=== PATIENT | male | born 1945 | race Caucasian/White ===

== ENCOUNTER 2021-07-31 12:48 | Inpatient (IN) | payer OTHER, MEDICARE ==
[2021-07-31] MEDS ORDERED: ALBUTEROL HFA INHALER INHALATION STA (12:53)
[2021-07-31] MEDS ORDERED: IBUPROFEN 600 MG TAB PO STA (12:55)
[2021-07-31] MEDS ORDERED: ACETAMINOPHEN TAB 500 MG TAB PO STA (12:55)
--- NOTE | 2021-07-31 13:13 | ED ---
General Adult HPI - General Chief complaint: Shortness of Breath Stated complaint: MARYAM Time Seen by Provider: 07/31/21 12:55 Source: patient, EMS, RN notes reviewed, old records reviewed Mode of arrival: EMS Limitations: no limitations - History of Present Illness Initial comments: This is a 76-year-old male who presents emergency Department with difficulty breathing. Patient states he has a past medical history significant for COPD and atrial fibrillation. Patient states last few days she's had a cough no sputum production. Patient also states last few days she's felt as though he had a fever but not taken his temperature. Patient states that his difficulty breathing is getting worse. Patient denies any chest pain or palpitations. Patient denies lightheadedness or dizziness. Patient just drove back from a fall. Patient denies any swelling to his legs or calf tenderness. Patient denies abdominal pain patient denies nausea vomiting diarrhea. - Related Data Allergies Allergy/AdvReac Type Severity Reaction Status Date / Time Sulfa (Sulfonamide Allergy Rash/Hives Verified 07/31/21 13:06 Antibiotics) Review of Systems ROS Statement: Those systems with pertinent positive or pertinent negative responses have been documented in the HPI. ROS Other: All systems not noted in ROS Statement are negative. Past Medical History Past Medical History: Atrial Fibrillation, COPD History of Any Multi-Drug Resistant Organisms: None Reported Past Surgical History: Hernia Repair, Joint Replacement, Orthopedic Surgery Additional Past Surgical History / Comment(s): Neck fusion, rib removal, knee replacement, right shoulder replacement, bilat hip replacement, toe surgery Past Psychological History: Anxiety, Depression Smoking Status: Former smoker Past Alcohol Use History: Occasional Past Drug Use History: Marijuana General Exam - General Exam Comments Initial Comments: GENERAL: Patient is well-developed and well-nourished. Patient is nontoxic and well- hydrated and is in mild distress. ENT: Neck is soft and supple. No significant lymphadenopathy is noted. Oropharynx is clear. Moist mucous membranes. Neck has full range of motion without eliciting any pain. EYES: The sclera were anicteric and conjunctiva were pink and moist. Extraocular movements were intact and pupils were equal round and reactive to light. Eyelids were unremarkable. PULMONARY: Patient is tachypneic. No crackles or rales were noted CARDIOVASCULAR: Patient is tachycardic at 120 beats a minute ABDOMEN: Soft and nontender with normal bowel sounds. SKIN: Skin is clear with no lesions or rashes and otherwise unremarkable. NEUROLOGIC: Patient is alert and oriented x3. Cranial nerves II through XII are grossly intact. Motor and sensory are also intact. Normal speech, volume and content. Symmetrical smile. MUSCULOSKELETAL: Normal extremities with adequate strength and full range of motion. LYMPHATICS: No significant lymphadenopathy is noted PSYCHIATRIC: Normal psychiatric evaluation. Limitations: no limitations Course Vital Signs 07/31/21 12:50 Temperature 100.7 F H Pulse Rate 108 H Respiratory 22 Rate Blood Pressure 129/86 O2 Sat by Pulse 91 L Oximetry Medical Decision Making - Medical Decision Making EKG shows atrial fibrillation with occasional PVC at 444 bpm NH interval 137 QRS 190 QT interval is 289 QTC is 372. Patient's EKG shows no ST segment elevation or depression. X-ray shows acute pulmonary edema. BMP correlates with pulmonary edema I started the patient on Lasix. I spoke with the [facility] see agreed with the patient admitted the patient wrote admitting orders. Because the patient also low-grade fever started patient on antibiotics. - Lab Data Result diagrams: 07/31/21 13:04 07/31/21 13:04 Lab Results 07/31/21 07/31/21 07/31/21 Range/Units 13:04 13:04 13:04 WBC 9.6 (3.8-10.6) k/uL RBC 4.16 L (4.30-5.90) m/uL Hgb 12.6 L (13.0-17.5) gm/dL Hct 39.6 (39.0-53.0) % MCV 95.2 (80.0-100.0) fL MCH 30.4 (25.0-35.0) pg MCHC 31.9 (31.0-37.0) g/dL RDW 16.3 H (11.5-15.5) % Plt Count 280 (150-450) k/uL MPV 7.4 Neutrophils % 82 % Lymphocytes % 6 % Monocytes % 9 % Eosinophils % 0 % Basophils % 0 % Neutrophils # 7.9 H (1.3-7.7) k/uL Lymphocytes # 0.6 L (1.0-4.8) k/uL Monocytes # 0.8 (0-1.0) k/uL Eosinophils # 0.0 (0-0.7) k/uL Basophils # 0.0 (0-0.2) k/uL Anisocytosis Slight PT 11.4 (9.0-12.0) sec INR 1.1 (<1.2) APTT 29.4 (22.0-30.0) sec D-Dimer 0.32 (<0.60) mg/L FEU Sodium 135 L (137-145) mmol/L Potassium 5.0 (3.5-5.1) mmol/L Chloride 105 (98-107) mmol/L Carbon Dioxide 21 L (22-30) mmol/L Anion Gap 9 mmol/L BUN 15 (9-20) mg/dL Creatinine 1.01 (0.66-1.25) mg/dL Est GFR (CKD-EPI)AfAm 84 (>60 ml/min/1.73 sqM) Est GFR (CKD-EPI)NonAf 73 (>60 ml/min/1.73 sqM) Glucose 119 H (74-99) mg/dL Plasma Lactic Acid Jose Manuel (0.7-2.0) mmol/L Calcium 9.0 (8.4-10.2) mg/dL Magnesium 2.0 (1.6-2.3) mg/dL Total Bilirubin 1.0 (0.2-1.3) mg/dL AST 30 (17-59) U/L ALT 16 (4-49) U/L Alkaline Phosphatase 81 (38-126) U/L Troponin I (0.000-0.034) ng/mL NT-Pro-B Natriuret Pep pg/mL Total Protein 6.4 (6.3-8.2) g/dL Albumin 3.7 (3.5-5.0) g/dL Coronavirus (PCR) (Not Detectd) Influenza Type A RNA (Not Detectd) Influenza Type B (PCR) (Not Detectd) 07/31/21 07/31/21 07/31/21 Range/Units 13:04 13:04 13:04 WBC (3.8-10.6) k/uL RBC (4.30-5.90) m/uL Hgb (13.0-17.5) gm/dL Hct (39.0-53.0) % MCV (80.0-100.0) fL MCH (25.0-35.0) pg MCHC (31.0-37.0) g/dL RDW (11.5-15.5) % Plt Count (150-450) k/uL MPV Neutrophils % % Lymphocytes % % Monocytes % % Eosinophils % % Basophils % % Neutrophils # (1.3-7.7) k/uL Lymphocytes # (1.0-4.8) k/uL Monocytes # (0-1.0) k/uL Eosinophils # (0-0.7) k/uL Basophils # (0-0.2) k/uL Anisocytosis PT (9.0-12.0) sec INR (<1.2) APTT (22.0-30.0) sec D-Dimer (<0.60) mg/L FEU Sodium (137-145) mmol/L Potassium (3.5-5.1) mmol/L Chloride (98-107) mmol/L Carbon Dioxide (22-30) mmol/L Anion Gap mmol/L BUN (9-20) mg/dL Creatinine (0.66-1.25) mg/dL Est GFR (CKD-EPI)AfAm (>60 ml/min/1.73 sqM) Est GFR (CKD-EPI)NonAf (>60 ml/min/1.73 sqM) Glucose (74-99) mg/dL Plasma Lactic Acid Jose Manuel 1.7 (0.7-2.0) mmol/L Calcium (8.4-10.2) mg/dL Magnesium (1.6-2.3) mg/dL Total Bilirubin (0.2-1.3) mg/dL AST (17-59) U/L ALT (4-49) U/L Alkaline Phosphatase (38-126) U/L Troponin I 0.015 (0.000-0.034) ng/mL NT-Pro-B Natriuret Pep 3840 pg/mL Total Protein (6.3-8.2) g/dL Albumin (3.5-5.0) g/dL Coronavirus (PCR) (Not Detectd) Influenza Type A RNA (Not Detectd) Influenza Type B (PCR) (Not Detectd) 07/31/21 07/31/21 Range/Units 13:08 13:09 WBC (3.8-10.6) k/uL RBC (4.30-5.90) m/uL Hgb (13.0-17.5) gm/dL Hct (39.0-53.0) % MCV (80.0-100.0) fL MCH (25.0-35.0) pg MCHC (31.0-37.0) g/dL RDW (11.5-15.5) % Plt Count (150-450) k/uL MPV Neutrophils % % Lymphocytes % % Monocytes % % Eosinophils % % Basophils % % Neutrophils # (1.3-7.7) k/uL Lymphocytes # (1.0-4.8) k/uL Monocytes # (0-1.0) k/uL Eosinophils # (0-0.7) k/uL Basophils # (0-0.2) k/uL Anisocytosis PT (9.0-12.0) sec INR (<1.2) APTT (22.0-30.0) sec D-Dimer (<0.60) mg/L FEU Sodium (137-145) mmol/L Potassium (3.5-5.1) mmol/L Chloride (98-107) mmol/L Carbon Dioxide (22-30) mmol/L Anion Gap mmol/L BUN (9-20) mg/dL Creatinine (0.66-1.25) mg/dL Est GFR (CKD-EPI)AfAm (>60 ml/min/1.73 sqM) Est GFR (CKD-EPI)NonAf (>60 ml/min/1.73 sqM) Glucose (74-99) mg/dL Plasma Lactic Acid Jose Manuel (0.7-2.0) mmol/L Calcium (8.4-10.2) mg/dL Magnesium (1.6-2.3) mg/dL Total Bilirubin (0.2-1.3) mg/dL AST (17-59) U/L ALT (4-49) U/L Alkaline Phosphatase (38-126) U/L Troponin I (0.000-0.034) ng/mL NT-Pro-B Natriuret Pep pg/mL Total Protein (6.3-8.2) g/dL Albumin (3.5-5.0) g/dL Coronavirus (PCR) Not Detected (Not Detectd) Influenza Type A RNA Not Detected (Not Detectd) Influenza Type B (PCR) Not Detected (Not Detectd) Disposition Clinical Impression: Acute pulmonary edema, Pneumonia Disposition: ADMITTED IP TO THIS HOSP Referrals: None,Stated [REFERRING] - 1-2 days
[2021-07-31 13:23] LABS: Anisocytosis Slight; Basophils % (A) 0 %; Eosinophils % (A) 0 %; HCT 39.6 % (39.0-53.0); HGB 12.6 gm/dL (13.0-17.5); Lymphocytes # (A) 0.6 k/uL (1.0-4.8); Lymphocytes % (A) 6 %; MCH 30.4 pg (25.0-35.0); MCHC 31.9 g/dL (31.0-37.0); MCV 95.2 fL (80.0-100.0); Mean Platelet Volume 7.4; Monocytes # (A) 0.8 k/uL (0-1.0); Monocytes % (A) 9 %; Neutrophils # (A) 7.9 k/uL (1.3-7.7); Neutrophils % (A) 82 %; Platelet Count 280 k/uL (150-450); RBC 4.16 m/uL (4.30-5.90); RDW 16.3 % (11.5-15.5); WBC 9.6 k/uL (3.8-10.6)
[2021-07-31 13:34] LABS: Albumin 3.7 g/dL (3.5-5.0); Total Protein 6.4 g/dL (6.3-8.2)
[2021-07-31 13:36] LABS: INR 1.1 (<1.2); Partial Thromboplastin Time 29.4 sec (22.0-30.0); Prothrombin Time 11.4 sec (9.0-12.0)
--- NOTE | 2021-07-31 13:46 | XR ---
EXAMINATION TYPE: XR chest 2V DATE OF EXAM: 07/31/2021 1:32 PM COMPARISON: None TECHNIQUE: XR chest 2V Frontal and lateral views of the chest. CLINICAL INDICATION:Male, 76 years old with history of difficulty breathing; FINDINGS: Lungs/Pleura: There is no evidence of pleural effusion, focal consolidation, or pneumothorax. Increa sed haziness within the bilateral lateral lungs likely secondary to summation of overlying tissue. Pulmonary vascularity: Pulmonary vascular congestion. Heart/mediastinum: Cardiomediastinal silhouette is enlarged and stable. Musculoskeletal: No acute osseous pathology. Right arthroplasty partially visualized. IMPRESSION: Cardiomegaly and mild pulmonary vascular congestion. Correlate with BNP for congestive heart failure.
[2021-07-31] MEDS ORDERED: AZITHROMYCIN 500 MG in SODIUM CHLORIDE 0.9% 250 ML IVPB STA (14:23)
[2021-07-31] MEDS ORDERED: cefTRIAXone IN SWFI 1,000 MG/10 ML SYRINGE IVP STA (14:47)
[2021-07-31] MEDS: FUROSEMIDE 10 MG/ML 4 ML VIAL IV SCH ×2 (15:00→20:27)
[2021-07-31] MEDS ORDERED: IPRATROPIUM-ALBUTEROL 3 ML NEB INHALATION PRN (16:49)
[2021-07-31] MEDS: NITROGLYCERIN OINT 1 INCH/GM PACKET TOPICAL SCH ×2 (17:29→20:27)
[2021-07-31] MEDS: RIVAROXABAN 20 MG TAB PO SCH (17:29)
--- NOTE | 2021-07-31 17:48 | HP ---
HISTORY AND PHYSICAL CHIEF COMPLAINT: Shortness of breath. HISTORY OF PRESENT ILLNESS: This 76-year-old gentleman with a past medical history of atrial fibrillation and COPD who is living in the [place] area was apparently returning from [place] with his dog and the patient had features of COPD for the past several days, which worsened. No sputum production. The patient came to [facility] and was admitted for further evaluation and treatment. There is no history of any fever, rigors or chills at this time. The chest x-ray showed evidence of pulmonary edema. BNP was elevated at 3840. Influenza and COVID are negative. PAST MEDICAL HISTORY: History of COPD, atrial fibrillation. HOME MEDICATIONS: Home medications include . Doses are reviewed. ALLERGIES: SULFA. FAMILY HISTORY: No history of heart disease or strokes in the family. SOCIAL HISTORY: Previous history of smoking. REVIEW OF SYSTEMS: Fourteen-point review of systems negative except as mentioned earlier. Patient has significant hearing difficulties. He uses hearing aids. PHYSICAL EXAMINATION: Pulse is 126, blood pressure 120/60, respiration 18. HEENT: Conjunctivae normal. Oral mucosa moist. NECK: No jugular venous distention. No carotid bruit. CARDIOVASCULAR: S1, S2 muffled. RESPIRATION: Bilateral scattered rhonchi and crackles. ABDOMEN: Soft, obese. LEGS: No edema. No swelling. NERVOUS SYSTEM: No focal deficit. LABS: WBC 9.6, hemoglobin 12.6. Rest of the labs are noted. ASSESSMENT: 1. Shortness of breath, possibly chronic obstructive pulmonary disease acute exacerbation, as well as congestive heart failure, acute exacerbation. Ejection fraction unknown. 2. History of atrial fibrillation. 3. Chronic obstructive pulmonary disease. 4. Degenerative joint disease. 5. History of anxiety, depression. 6. History of nicotine dependence. RECOMMENDATIONS AND DISCUSSION: In this 76-year-old gentleman who presented with multiple complex medical issues, we will monitor the patient closely. Recommend intravenous diuretics and bronchodilators. Two-D echo with Doppler. Cardiology and pulmonology consultations. Prognosis guarded because of multiple complex medical issues. Further recommendations to follow. The initial troponin was 0.015. Will complete a set also. See orders for further details. MMODL / IJN: [id number] / MTDD
[2021-07-31] MEDS: IPRATROPIUM-ALBUTEROL 3 ML NEB INHALATION SCH (19:52)
[2021-07-31] MEDS ORDERED: SYMBICORT 80-4.5 MCG INHALER INHALATION SCH (20:00)
[2021-07-31] MEDS: PRAZOSIN 1 MG CAP PO SCH (20:27)
[2021-08-01] MEDS: FUROSEMIDE 10 MG/ML 4 ML VIAL IV SCH ×3 (05:33→19:53)
[2021-08-01 05:36] LABS: Basophils % (A) 0 %; Eosinophils # (A) 0.1 k/uL (0-0.7); Eosinophils % (A) 1 %; HCT 37.1 % (39.0-53.0); HGB 11.4 gm/dL (13.0-17.5); Lymphocytes # (A) 0.9 k/uL (1.0-4.8); Lymphocytes % (A) 13 %; MCH 29.8 pg (25.0-35.0); MCHC 30.7 g/dL (31.0-37.0); MCV 97.1 fL (80.0-100.0); Mean Platelet Volume 7.1; Monocytes # (A) 0.7 k/uL (0-1.0); Monocytes % (A) 9 %; Neutrophils # (A) 5.3 k/uL (1.3-7.7); Neutrophils % (A) 74 %; Platelet Count 271 k/uL (150-450); RBC 3.82 m/uL (4.30-5.90); RDW 15.8 % (11.5-15.5); WBC 7.1 k/uL (3.8-10.6)
[2021-08-01 05:48] LABS: Calcium 8.4 mg/dL (8.4-10.2); Potassium 3.9 mmol/L (3.5-5.1)
[2021-08-01] MEDS: IPRATROPIUM-ALBUTEROL 3 ML NEB INHALATION SCH ×4 (08:07→19:30)
[2021-08-01] MEDS: lamoTRIgine 100 MG TAB PO SCH (08:44)
[2021-08-01] MEDS: lamoTRIgine 25 MG TAB PO SCH (08:44)
[2021-08-01] MEDS: ATORVASTATIN 20 MG TAB PO SCH (08:44)
[2021-08-01] MEDS: NITROGLYCERIN OINT 1 INCH/GM PACKET TOPICAL SCH ×4 (08:44→20:01)
[2021-08-01] MEDS: buPROPion XL 300 MG TAB.ER.24H PO SCH (08:48)
[2021-08-01] MEDS: AZITHROMYCIN 500 MG in SODIUM CHLORIDE 0.9% 250 ML IVPB SCH (12:15)
[2021-08-01] MEDS: METOPROLOL TARTRATE 12.5 MG TAB PO SCH ×2 (12:19→19:53)
--- NOTE | 2021-08-01 13:08 | P.CRDCN ---
History of Present Illness Consult date: 08/01/21 History of present illness: History of present illness: This is a 76-year-old male who lives in the [place] area. He follows with a language pathologist in [place] for atrial fibrillation recently started on Xarelto a couple months ago. He was traveling to [place] through [employer] to see his sister and on his way back through customs, patient was significantly short of breath after he had walked to the duty free store. He came into [facility] emergency center for evaluation. He has had shortness of breath for a couple months and worse at this time. He also states he has some trouble with memory issues. He denies chest pain and states he is able to lie flat in bed. No edema. Patient gives history of having depression and suicidal ideation follows with a therapist 2 times per week and has a Tibetan mastiff service dog at his bedside. He also gives history of past asbestos an agent orange exposure. Patient was a smoker of 2 packs per day for 40+ years and quit in 1999. Patient was found to have a temperature 100.7. Heart rate 108, blood pressure 129/86, pulse ox 91% on room air. EKG A. fib at rate of 144 bpm. WBC 9.6, hemoglobin 12.6, platelet count 280. INR 1.1. D-dimer 0.32. Sodium 135, CO2 21, BUN 15 and creatinine 1.01. Blood sugar 119. Troponin negative on 3 draws. Liver function tests were all normal. Magnesium 2.0. Rotavirus PCR not detected. Influenza A not detected. Influenza B not detected. Chest x-ray reveals cardiomegaly and mild pulmonary vascular congestion. Correlate for BNP and congestive heart failure. Review Of Systems: Constitutional: No fever, no chills. No weakness, fatigue or lethargy. EENT: No headache. No dizziness. Lungs: Reports shortness of breath, cough, no sputum production. No wheezing. Shortness of breath with exertion. Cardiovascular: No chest pain, no lower extremity edema. No palpitations. No paroxysmal nocturnal dyspnea. No orthopnea. No lightheadedness or dizziness. No syncopal episodes. Abdominal: No abdominal pain. No nausea, vomiting. No diarrhea. No constipation. No bloody or tarry stools.. No loss of appetite. Genitourinary: No dysuria.. No urinary retention. Musculoskeletal: No myalgias. No muscle weakness, no gait dysfunction, no frequent falls. No back pain. No neck pain. Integumentary: No wounds, no lesions. No rash or pruritus. No unusual bruising. Neurologic: No aphasia. No facial droop. No change in mentation. No head injury. No headache. No paralysis. No paresthesia. Psychiatric: No depression. No anxiety. Endocrine: No abnormal blood sugars. Physical examination: Gen: This is a an obese 76-year-old male. HEENT: Head is atraumatic, normocephalic. Pupils equal, round. Sclerae is an icteric. NECK: Supple. No JVD. No lymphadenopathy. No thyromegaly. LUNGS: Diminished bilaterally. No wheezes or rhonchi. No intercostal retractions. HEART: Irregular rate and rhythm. No murmur. ABDOMEN: Soft. Bowel sounds are present. No masses. No tenderness. EXTREMITIES: 1+ bilaterally pedal edema. No calf tenderness. NEUROLOGICAL: Patient is awake, alert and oriented x3. Cranial nerves 2 through 12 are grossly intact. Assessment: Acute pulmonary edema, acute diastolic heart failure A. fib with RVR Chronic atrial fibrillation on anticoagulation Possible pneumonia COPD Hypertension Hyperlipidemia Plan: Continue Lasix 40 mg IV every 8 hours, I&O and daily weights, monitor electro lytes and renal function Continue antibiotics per primary team Patient will be started on low-dose Lopressor 12.5 g twice daily Consider adding Aldactone tomorrow if blood pressure is improved, currently soft Continue Xarelto 20 mg daily Obtain 2-D echocardiogram and Doppler study to assess cardiac structure and function Further recommendations to follow based upon clinical course Thank you kindly for this consultation. Nurse practitioner note has been reviewed, I agree with documented findings and plan of care. Patient was seen and examined. Past Medical History Past Medical History: Atrial Fibrillation, COPD History of Any Multi-Drug Resistant Organisms: None Reported Past Surgical History: Hernia Repair, Joint Replacement, Orthopedic Surgery Additional Past Surgical History / Comment(s): Neck fusion, rib removal, knee replacement, right shoulder replacement, bilat hip replacement, toe surgery Past Psychological History: Anxiety, Depression Smoking Status: Former smoker Past Alcohol Use History: Occasional Past Drug Use History: Marijuana Medications and Allergies Home Medications Medication Instructions Recorded Confirmed Type Albuterol Sulfate [Ventolin HFA] 2 puff INHALATION RT-Q4H PRN 07/31/21 07/31/21 History Fluticasone Propion/Salmeterol 1 puff INHALATION RT-BID 07/31/21 07/31/21 History [Wixela 250-50 Inhub] Prazosin HCl 2 mg PO HS 07/31/21 07/31/21 History Rivaroxaban [Xarelto] 20 mg PO DAILY@1800 07/31/21 07/31/21 History Simvastatin [Zocor] 40 mg PO DAILY 07/31/21 07/31/21 History buPROPion XL [Wellbutrin XL] 300 mg PO DAILY 07/31/21 07/31/21 History lamoTRIgine 200 mg PO DAILY 07/31/21 07/31/21 History lamoTRIgine [LaMICtal] 50 mg PO DAILY 07/31/21 07/31/21 History Allergies Allergy/AdvReac Type Severity Reaction Status Date / Time Sulfa (Sulfonamide Allergy Rash/Hives Verified 07/31/21 14:45 Antibiotics) Physical Exam Vitals: Vital Signs Temp Pulse Pulse Resp BP BP Pulse Ox 08/01/21 08:26 89 08/01/21 08:13 94 94 L 08/01/21 08:00 116 H 20 119/53 92 L 08/01/21 04:00 98 20 95/58 92 L 08/01/21 00:00 61 20 118/78 91 L 07/31/21 20:00 98.6 F 82 20 112/69 91 L 07/31/21 19:52 93 L 07/31/21 15:53 83 16 105/69 94 L 07/31/21 15:01 126 H 18 124/62 94 L 07/31/21 12:50 100.7 F H 108 H 22 129/86 91 L Intake and Output 07/31/21 08/01/21 08/01/21 22:59 06:59 14:59 Intake Total 485 485 Balance 485 485 Intake: Oral 485 485 Other: Voiding Method Toilet Toilet Urinal Urinal # Voids 1 3 Weight 125.191 kg Results 08/01/21 04:42 08/01/21 04:42 Cardiac Enzymes 07/31/21 07/31/21 07/31/21 Range/Units 13:04 13:04 16:02 AST 30 (17-59) U/L Troponin I 0.015 0.017 (0.000-0.034) ng/mL 07/31/21 Range/Units 20:51 AST (17-59) U/L Troponin I 0.016 (0.000-0.034) ng/mL Coagulation 07/31/21 Range/Units 13:04 PT 11.4 (9.0-12.0) sec APTT 29.4 (22.0-30.0) sec CBC 07/31/21 08/01/21 Range/Units 13:04 04:42 WBC 9.6 7.1 (3.8-10.6) k/uL RBC 4.16 L 3.82 L (4.30-5.90) m/uL Hgb 12.6 L 11.4 L (13.0-17.5) gm/dL Hct 39.6 37.1 L (39.0-53.0) % Plt Count 280 271 (150-450) k/uL Comprehensive Metabolic Panel 07/31/21 08/01/21 Range/Units 13:04 04:42 Sodium 135 L 135 L (137-145) mmol/L Potassium 5.0 3.9 (3.5-5.1) mmol/L Chloride 105 102 (98-107) mmol/L Carbon Dioxide 21 L 27 (22-30) mmol/L BUN 15 18 (9-20) mg/dL Creatinine 1.01 1.28 H (0.66-1.25) mg/dL Glucose 119 H 97 (74-99) mg/dL Calcium 9.0 8.4 (8.4-10.2) mg/dL AST 30 (17-59) U/L ALT 16 (4-49) U/L Alkaline Phosphatase 81 (38-126) U/L Total Protein 6.4 (6.3-8.2) g/dL Albumin 3.7 (3.5-5.0) g/dL Current Medications Generic Name Dose Route Start Last Admin Trade Name Freq PRN Reason Stop Dose Admin Albuterol/Ipratropium 3 ml 07/31/21 20:00 08/01/21 08:07 Ipratropium-Albuterol 3 Ml Neb INHALATION 3 ml RT-QID DOMINICK Administration Albuterol/Ipratropium 3 ml 07/31/21 16:49 Ipratropium-Albuterol 3 Ml Neb INHALATION RT-QID PRN Shortness Of Breath Or Wheezing Atorvastatin Calcium 20 mg 08/01/21 09:00 08/01/21 08:44 Atorvastatin 20 Mg Tab PO 20 mg DAILY DOMINICK Administration Budesonide/Formoterol Fumarate 2 puff 07/31/21 20:00 Symbicort 80-4.5 Mcg Inhaler INHALATION RT-BID DOMINICK Bupropion HCl 300 mg 08/01/21 09:00 08/01/21 08:48 Bupropion Xl 300 Mg Tab.Er.24h PO 300 mg DAILY DOMINICK Administration Furosemide 40 mg 07/31/21 14:30 08/01/21 05:33 Furosemide 10 Mg/Ml 4 Ml Vial IV 40 mg Q8H DOMINICK Administration Ceftriaxone Sodium 1 gm/ 50 mls @ 100 mls/hr 08/01/21 09:00 08/01/21 08:45 Sodium Chloride IVPB 100 mls/hr Q24HR DOMINICK Administration Protocol Azithromycin 500 mg/ Sodium 250 mls @ 250 mls/hr 08/01/21 09:00 Chloride IVPB 08/03/21 09:59 DAILY DOMINICK Protocol Lamotrigine 200 mg 08/01/21 09:00 08/01/21 08:44 Lamotrigine 100 Mg Tab PO 200 mg DAILY DOMINICK Administration Lamotrigine 50 mg 08/01/21 09:00 08/01/21 08:44 Lamotrigine 25 Mg Tab PO 50 mg DAILY DOMINICK Administration Nitroglycerin 1 inch 07/31/21 18:00 08/01/21 08:44 Nitroglycerin Oint 1 Inch/Gm Packet TOPICAL 1 inch QID DOMINICK Administration Prazosin HCl 2 mg 07/31/21 21:00 07/31/21 20:27 Prazosin 1 Mg Cap PO 2 mg HS DOMINICK Administration Rivaroxaban 20 mg 07/31/21 18:00 07/31/21 17:29 Rivaroxaban 20 Mg Tab PO 20 mg DAILY@1800 DOMINICK Administration Protocol Intake and Output 07/31/21 08/01/21 08/01/21 22:59 06:59 14:59 Intake Total 485 485 Balance 485 485 Intake: Oral 485 485 Other: Voiding Method Toilet Toilet Urinal Urinal # Voids 1 3 Weight 125.191 kg 08/01/21 04:42 08/01/21 04:42
--- NOTE | 2021-08-01 14:19 | P.CNPUL ---
History of Present Illness Consult date: 08/01/21 Requesting physician: Sina Joshi Reason for consult: dyspnea, cough, COPD, hypoxemia, pneumonia, abnormal CXR/CT Chief complaint: Shortness of breath. History of present illness: Pulmonary consult dated 08/01/2021. 76-year-old male, who presented to the emergency department on July 31, which s hortness of breath. The patient apparently has a history of COPD from previous heavy tobacco use, and has a history of atrial fibrillation. The patient apparently was driving home from [place], over to [place], and [place], because he was profoundly short of breath. He also complains of cough, nasal congestion drainage, but minimal sputum production. The patient also states that he likely had a temperature elevation and/or chills. The patient denies any wheezing. No chest pain or chest discomfort. Denied any nausea, vomiting, or diarrhea. The patient was seen in the emergency room, and admitted to the hospital for shortness of breath, secondary to CHF, and COPD exacerbation. He is currently resting comfortably. The patient is currently not on any supplemental oxygen. White count 7.1, hemoglobin 11.4, hematocrit 37.1, and platelet count 271,000. Sodium 135, potassium 3.9, chlorides 102, CO2 27, BUN 18, and creatinine 1.28. Troponins were 0.015, 0.017, and 0.016. N-terminal proBNP was 3840. Testing for downs virus was negative. EKG is reviewed. Chest x-ray shows evidence of cardiomegaly, and mild to moderate CHF. Review of Systems REVIEW OF SYSTEMS: CONSTITUTIONAL: Fever. NEUROLOGIC: [ Negative.] HEENT: Nasal congestion, and drainage. CARDIAC: [Negative.] PULMONARY: Shortness of breath, and nonproductive cough. GI: [Negative.] : [Negative.] RHEUMATOLOGIC: [ Negative.] IMMUNOLOGIC: [ Negative.] ENDOCRINE: [Negative. ] DERMATOLOGIC: [Negative.] Past Medical History Past Medical History: Atrial Fibrillation, COPD History of Any Multi-Drug Resistant Organisms: None Reported Past Surgical History: Hernia Repair, Joint Replacement, Orthopedic Surgery Additional Past Surgical History / Comment(s): Neck fusion, rib removal, knee replacement, right shoulder replacement, bilat hip replacement, toe surgery Past Psychological History: Anxiety, Depression Smoking Status: Former smoker Past Alcohol Use History: Occasional Past Drug Use History: Marijuana Medications and Allergies Home Medications Medication Instructions Recorded Confirmed Type Albuterol Sulfate [Ventolin HFA] 2 puff INHALATION RT-Q4H PRN 07/31/21 07/31/21 History Fluticasone Propion/Salmeterol 1 puff INHALATION RT-BID 07/31/21 07/31/21 History [Wixela 250-50 Inhub] Prazosin HCl 2 mg PO HS 07/31/21 07/31/21 History Rivaroxaban [Xarelto] 20 mg PO DAILY@1800 07/31/21 07/31/21 History Simvastatin [Zocor] 40 mg PO DAILY 07/31/21 07/31/21 History buPROPion XL [Wellbutrin XL] 300 mg PO DAILY 07/31/21 07/31/21 History lamoTRIgine 200 mg PO DAILY 07/31/21 07/31/21 History lamoTRIgine [LaMICtal] 50 mg PO DAILY 07/31/21 07/31/21 History Allergies Allergy/AdvReac Type Severity Reaction Status Date / Time Sulfa (Sulfonamide Allergy Rash/Hives Verified 07/31/21 14:45 Antibiotics) Physical Exam Osteopathic Statement: *. No significant issues noted on an osteopathic structural exam other than those noted in the History and Physical/Consult. Vitals: Vital Signs Temp Pulse Pulse Resp BP BP Pulse Ox 08/01/21 12:00 99 08/01/21 11:50 96 08/01/21 08:26 89 08/01/21 08:13 94 94 L 08/01/21 08:00 116 H 20 119/53 92 L 08/01/21 04:00 98 20 95/58 92 L 08/01/21 00:00 61 20 118/78 91 L 07/31/21 20:00 98.6 F 82 20 112/69 91 L 07/31/21 19:52 93 L 07/31/21 15:53 83 16 105/69 94 L 07/31/21 15:01 126 H 18 124/62 94 L Intake and Output 07/31/21 08/01/21 08/01/21 22:59 06:59 14:59 Intake Total 485 485 Balance 485 485 Intake: Oral 485 485 Other: Voiding Method Toilet Toilet Toilet Urinal Urinal Urinal # Voids 1 3 Weight 125.191 kg No acute distress, oriented 3. Currently on room air. No obvious distress. No conversational dyspnea or use of accessory muscles. HEENT examination is grossly unremarkable. Neck supple. Full range of motion. No adenopathy thyromegaly or neck vein distention. Cardiovascular examination reveals regular rhythm rate. S1-S2 normal. No S3 or S4. No discernible murmur noted. Heart rate 99 bpm. Heart sounds are distant. Lungs reveal scattered bilateral rhonchi. Bibasilar crackles. No wheezes. Saturations 94%. Breath sounds equal bilaterally. Abdomen soft bowel sounds are heard. No masses or tenderness. Extremities are intact. No cyanosis clubbing or edema. Skin is without rash or lesion. Neurologic examination is brief but nonfocal. Results - Laboratory Findings CBC and BMP: 08/01/21 04:42 08/01/21 04:42 PT/INR, D-dimer PT 11.4 sec (9.0-12.0) 07/31/21 13:04 INR 1.1 (<1.2) 07/31/21 13:04 D-Dimer 0.32 mg/L FEU (<0.60) 07/31/21 13:04 Abnormal lab findings: Abnormal Labs 07/31/21 07/31/21 08/01/21 13:04 13:04 04:42 RBC 4.16 L 3.82 L Hgb 12.6 L 11.4 L Hct 37.1 L MCHC 30.7 L RDW 16.3 H 15.8 H Neutrophils # 7.9 H Lymphocytes # 0.6 L 0.9 L Sodium 135 L Carbon Dioxide 21 L Creatinine Glucose 119 H 08/01/21 04:42 RBC Hgb Hct MCHC RDW Neutrophils # Lymphocytes # Sodium 135 L Carbon Dioxide Creatinine 1.28 H Glucose - Diagnostic Findings Chest x-ray: image reviewed Assessment and Plan Assessment: Acute shortness of breath, likely multifactorial, in part related to CHF, possible atrial fibrillation, and COPD exacerbation. History of atrial fibrillation. Previous history of heavy tobacco use, and probable underlying COPD. History of hypertension. History of hyperlipidemia. History of anxiety/depression. Plan: Plan dated 08/01/2021. The patient's medications, labs, and x-rays will be reviewed. The patient's shortness of breath, is improved, although he does appear to be a bit short of breath, even at rest. The patient's chest x-ray in my opinion is consistent with primarily CHF. We will check a pro-calcitonin level. Cardiology has seen the patient. Additional recommendations and suggestions are forthcoming. We'll make sure the patient's on breathing medications. The patient's primary care physician is in [place], [place]. Time with Patient: Greater than 30
--- NOTE | 2021-08-01 14:30 | PN ---
PROGRESS NOTE DATE OF SERVICE: 08/01/2021 This 76-year-old gentleman who was admitted with shortness of breath and COPD and CHF exacerbation has improved significantly. No chest pain. No palpitations. No fever. PHYSICAL EXAMINATION: Pulse is 89. The blood pressure is 193/50. Respiration 20. HEENT: Conjunctivae normal. Neck: No JVD. Cardiovascular: S1, S2 muffled. Respirations: Breath sounds diminished in the bases. Scattered rhonchi. Abdomen: Soft. Nervous system: No focal deficits. LAB: Hemoglobin 11.5. Sodium is 135. ASSESSMENT: 1. Shortness of breath with possible chronic obstructive pulmonary disease, acute exacerbation as well as congestive heart failure, acute exacerbation, ejection fraction unknown. 2. History of atrial fibrillation. 3. Chronic obstructive pulmonary disease. 4. Degenerative joint disease. 5. History of anxiety, depression. 6. Nicotine dependence. RECOMMENDATIONS AND DISCUSSION: Recommend to continue current management, medications, symptomatic treatment, continue with diuretics, medications, bronchodilators. I would recommend a repeat chest x-ray today and then continue to monitor. Further recommendations to follow. See orders for further details. MMODL / IJN: [id number] /
--- NOTE | 2021-08-01 14:31 | XR ---
EXAMINATION TYPE: XR chest 1V portable DATE OF EXAM: 08/01/2021 COMPARISON: 07/31/2021 HISTORY: Short of breath TECHNIQUE: Single view FINDINGS: There is some pulmonary interstitial and airspace edema. There is apparent calcified pleura l plaque on the left chest wall. There are chest leads. There is right shoulder prosthesis. There is slight blunting of the right costophrenic angle. Bony thorax appears intact. IMPRESSION: There is pulmonary edema which is increased compared to yesterday and could be congestive heart failure superimposed on pleural and pulmonary fibrosis.
[2021-08-01] MEDS: RIVAROXABAN 20 MG TAB PO SCH (16:24)
[2021-08-01] MEDS: SYMBICORT 160-4.5 MCG INHALER INHALATION SCH (19:30)
[2021-08-01] MEDS: PRAZOSIN 1 MG CAP PO SCH (19:53)
[2021-08-02] MEDS: FUROSEMIDE 10 MG/ML 4 ML VIAL IV SCH (06:13)
[2021-08-02] MEDS: SYMBICORT 160-4.5 MCG INHALER INHALATION SCH ×2 (08:04→19:39)
[2021-08-02] MEDS: IPRATROPIUM-ALBUTEROL 3 ML NEB INHALATION SCH ×4 (08:04→19:39)
[2021-08-02] MEDS ORDERED: ACETAMINOPHEN TAB 325 MG TAB PO PRN (08:47)
[2021-08-02] MEDS: AZITHROMYCIN 500 MG in SODIUM CHLORIDE 0.9% 250 ML IVPB SCH (08:56)
[2021-08-02] MEDS: lamoTRIgine 100 MG TAB PO SCH (08:57)
[2021-08-02] MEDS: METOPROLOL TARTRATE 12.5 MG TAB PO SCH ×3 (08:57→21:15)
[2021-08-02] MEDS: lamoTRIgine 25 MG TAB PO SCH (08:57)
[2021-08-02] MEDS: ATORVASTATIN 20 MG TAB PO SCH (08:58)
[2021-08-02] MEDS: buPROPion XL 300 MG TAB.ER.24H PO SCH (08:59)
[2021-08-02 10:15] LABS: Calcium 8.6 mg/dL (8.4-10.2); Potassium 3.3 mmol/L (3.5-5.1)
--- NOTE | 2021-08-02 11:05 | CA ---
Transthoracic Echo Report Name: Kermit Miranda Age: 76 Gender: M : 1945 Exam Date: 08/02/2021 09:26 Exam Location: [facility] Ht (in): 72 Wt (lb): 276 Ordering Physician: Sina Joshi MD Attending/Referring Phys: Clinic Md Associate Thuy Ly RDCS Procedure CPT: Indications: chf Cardiac Hx: Hx of afib Technical Quality: Fair Contrast 1: Total Dose (mL): Contrast 2: Total Dose (mL): MEASUREMENTS (Male / Female) Normal Values 2D ECHO LV Diastolic Diameter PLAX 5.5 cm 4.2 - 5.9 / 3.9 - 5.3 cm LV Systolic Diameter PLAX 2.6 cm IVS Diastolic Thickness 1.2 cm 0.6 - 1.0 / 0.6 - 0.9 cm LVPW Diastolic Thickness 1.4 cm 0.6 - 1.0 / 0.6 - 0.9 cm LV Relative Wall Thickness 0.5 M-MODE Aortic Root Diameter MM 3.8 cm LA Systolic Diameter MM 4.2 cm LA Ao Ratio MM 1.1 AV Cusp Separation MM 2.3 cm DOPPLER AV Peak Velocity 88.6 cm/s AV Peak Gradient 3.1 mmHg MR Peak Velocity 239.8 cm/s MR Peak Gradient 23.0 mmHg TR Peak Velocity 230.0 cm/s TR Peak Gradient 21.2 mmHg Right Ventricular Systolic Press 24.1 mmHg FINDINGS Left Ventricle Mildly increased septal wall thickness. Left ventricular ejection fraction is estimated at 55-60 %. Left ventricular cavity size normal. Right Ventricle The right ventricle is normal in size and function. Right Atrium The right atrium is normal in size. Left Atrium The left atrium is normal in size. Mitral Valve Structurally normal mitral valve without significant stenosis or prolapse. There is trace mitral regurgitation. Aortic Valve Structurally normal aortic valve without significant sclerosis or stenosis. There is no aortic regurgitation. Tricuspid Valve Structurally normal tricuspid valve without significant stenosis. Pulmonary artery systolic pressure is normal. Trace tricuspid regurgitation. Pulmonic Valve Structurally normal pulmonic valve without significant stenosis. There is no pulmonic regurgitation. Pericardium Normal pericardium without effusion. Aorta Normal aortic root dimension. CONCLUSIONS #1. Left ventricle size and function are normal. #2. Normal valvular structure and function with trace tricuspid regurgitation Previewed by: Dr. Eric Cunha MD (Electronically Signed) Final Date: 02 August 2021 11:05
--- NOTE | 2021-08-02 11:59 | P.PN ---
Subjective Progress Note Date: 08/02/21 76-year-old male, who presented to the emergency department on July 31, which shortness of breath. The patient apparently has a history of COPD from previous heavy tobacco use, and has a history of atrial fibrillation. The patient apparently was driving home from [place], over to [employer], and was [place], because he was profoundly short of breath. He also complains of cough, nasal congestion drainage, but minimal sputum production. The patient also states that he likely had a temperature elevation and/or chills. The patient denies any wheezing. No chest pain or chest discomfort. Denied any nausea, vomiting, or diarrhea. The patient was seen in the emergency room, and admitted to the hospital for shortness of breath, secondary to CHF, and COPD exacerbation. He is currently resting comfortably. The patient is currently not on any supplemental oxygen. White count 7.1, hemoglobin 11.4, hematocrit 37.1, and platelet count 271,000. Sodium 135, potassium 3.9, chlorides 102, CO2 27, BUN 18, and creatinine 1.28. Troponins were 0.015, 0.017, and 0.016. N-terminal proBNP was 3840. Testing for downs virus was negative. EKG is reviewed. Chest x-ray shows evidence of cardiomegaly, and mild to moderate CHF. On today's evaluation of 08/02/2021, the patient is feeling better and he is less short of breath compared to yesterday. His proBNP level was elevated and his presentation was typical of CHF. Repeat chest x-ray from yesterday shows pulmonary edema with cardiomegaly. The patient's echo of the heart was completed yesterday and the patient was found to have LV function that was normal with an EF around 55-60%, no significant valvular abnormalities noted. No other acute abnormalities noted. His blood pressure today is well controlled. His pulse ox on room air is around 91%. In terms of treatment, he is on bronchodilators, he is on IV Solu-Medrol, he is also on no diuretics for now. He is on Xarelto 20 mg by mouth daily anything Xarelto for issues related to atrial fibrillation. The patient has obstructive sleep apnea and he is ma intained on APAP and he carries a ResMed CPAP unit with him which is set at the pressure minimum of 5 and a maximal 15. His been compliant to CPAP therapy based on a quick compliancy evaluation was done at the bedside. Objective - Vital Signs Vital signs: Vital Signs Temp 98.6 F 07/31/21 20:00 Pulse 68 08/02/21 08:04 Resp 16 08/02/21 08:00 BP 107/67 08/02/21 08:00 Pulse Ox 91 L 08/02/21 08:00 FiO2 Intake & Output 08/01/21 08/02/21 08/02/21 18:59 06:59 18:59 Intake Total 1040 970 600 Balance 1040 970 600 Intake: Oral 1040 970 600 Other: Voiding Method Toilet Toilet Toilet Urinal Urinal Urinal # Voids 4 3 - Exam No acute distress, oriented 3. Currently on room air. No obvious distress. HEENT examination is grossly unremarkable. Neck supple. Full range of motion. No adenopathy thyromegaly or neck vein distention. Cardiovascular examination reveals regular rhythm rate. S1-S2 normal. No S3 or S4. No discernible murmur noted. Heart rate 99 bpm. Heart sounds are distant. Lungs reveal scattered bilateral rhonchi. Bibasilar crackles. No wheezes. Saturations 94%. Breath sounds equal bilaterally. Abdomen soft bowel sounds are heard. No masses or tenderness. Extremities are intact. No cyanosis clubbing or edema. Skin is without rash or lesion. Neurologic examination is brief but nonfocal. - Labs CBC & Chem 7: 08/01/21 04:42 08/02/21 09:15 Labs: Abnormal Lab Results - Last 24 Hours (Table) 08/01/21 08/02/21 Range/Units 04:42 09:15 Sodium 136 L (137-145) mmol/L Potassium 3.3 L (3.5-5.1) mmol/L Chloride 97 L (98-107) mmol/L Creatinine 1.30 H (0.66-1.25) mg/dL Glucose 126 H (74-99) mg/dL Procalcitonin 0.13 H (0.02-0.09) ng/mL Microbiology - Last 24 Hours (Table) 07/31/21 13:04 Blood Culture - Preliminary Blood No Growth after 24 hours 07/31/21 13:04 Blood Culture - Preliminary Blood No Growth after 24 hours Assessment and Plan Plan: Acute hypoxic respiratory failure, currently on room air oxygen Atrial fibrillation with rapid ventricular response at a time of admission, current rate is controlled Acute decompensated CHF with a preserved LV function Acute kidney injury, likely secondary to diuresis, creatinine is up to 1.3 Acute shortness of breath, likely multifactorial, in part related to CHF, possible atrial fibrillation, and COPD exacerbation. Active sleep apnea, currently on CPAP therapy and the patient has a APAP machine 5/15 cm of water Previous history of heavy tobacco use, and probable underlying COPD. History of hypertension. History of hyperlipidemia. History of anxiety/depression. Plan: Clinically improved Repeat electrodes in a.m. Repeat chest x-ray in a.m. Diuretics were held because of an acute kidney injury in the creatinine is up to 1.3. Nevertheless, the patient has improved with diuresis. He has been in negative fluid balance Management of atrial fibrillation. Cardiology Continue CPAP therapy, the patient is an APAP unit We'll continue to follow
[2021-08-02] MEDS ORDERED: Potassium Replacement Protocol 1 EACH MISC MISCELLANE PRN (12:10)
[2021-08-02] MEDS: POTASSIUM CHLORIDE ER 20 MEQ TAB.ER PO SCH ×3 (12:48→17:06)
--- NOTE | 2021-08-02 13:11 | P.PN ---
Subjective This is a 76-year-old male who lives in the [place] area. He has a history of paroxysmal atrial fibrillation on Xarelto, possible COPD, history of having depression and suicidal ideation follows with a therapist 2 times per week and has a Tibetan mastiff service dog at his bedside. He follows with a fish checker in [place] for atrial fibrillation recently started on Xarelto a couple months ago, does not remember his fish checker name. He does follow with a PCP Dr. Packer He was traveling to [place] through [address] to see his sister and on his way back through [place], patient was significantly short of breath after he had walked to the [employer] store. He came into [facility] for evaluation. He has had shortness of breath for a couple months and worse at this time. He also states he has some trouble with memory issues. He denies chest pain, symptoms of orthopnea or PND. Patient was a smoker of 2 packs per day for 40+ years and quit in 1999. Records were obtained from his PCP office at [facility], patient was diagnosed with atrial fibrillation by EKG and was referred to cardiology. Xarelto was initiated. 08/02/2021 Patient seen and examined at bedside, no acute distress. Denies any shortness of breath or chest pain. Echocardiogram revealed EF 5560 percent, trace mitral regurgitation, trace tricuspid regurgitation. Telemetry reviewed, patient is in atrial fibrillation with heart rates in the [id number]. He is currently maintained on Xarelto 20 mg daily, metoprolol titrate 25 mg twice a day, atorvastatin 20 mg daily, IV Lasix 40 mg twice a day Sodium 136, potassium 3.3, BUN 18, serum creatinine 1.3 GENERAL: Well-appearing, well-nourished and in no acute distress. NECK: Supple without JVD or thyromegaly. LUNGS: Breath sounds clear to auscultation bilaterally. Respiration equal and unlabored. No wheezes, rales or rhonchi. HEART: Regular rate and rhythm without murmurs, rubs or gallops. S1 and S2 heard. EXTREMITIES: Normal range of motion, no edema. No clubbing or cyanosis. Peripheral pulses intact. ASSESSMENT Paroxysmal atrial fibrillation with RVR on Xarelto Acute heart failure with preserved ejection fraction COPD Hypertension Hyperlipidemia PLAN Increase metoprolol 12.5mg TID Discontinue IV Lasix Monitor BMP tomorrow I&O and daily weights, monitor electrolytes and renal function Continue cardiac telemetry Further recommendations based on clinical course Nurse Practitioner note has been reviewed, I agree with a documented findings a nd plan of care. Patient was seen and examined. Objective - Vital Signs Vital signs: Vital Signs Temp 98.6 F 07/31/21 20:00 Pulse 72 08/02/21 12:04 Resp 16 08/02/21 12:00 BP 121/74 08/02/21 12:00 Pulse Ox 94 L 08/02/21 12:00 FiO2 Intake & Output 08/01/21 08/02/21 08/02/21 18:59 06:59 18:59 Intake Total 1040 970 600 Balance 1040 970 600 Intake: Oral 1040 970 600 Other: Voiding Method Toilet Toilet Toilet Urinal Urinal Urinal # Voids 4 3 - Labs CBC & Chem 7: 08/01/21 04:42 08/02/21 09:15 Labs: Abnormal Lab Results - Last 24 Hours (Table) 08/01/21 08/02/21 Range/Units 04:42 09:15 Sodium 136 L (137-145) mmol/L Potassium 3.3 L (3.5-5.1) mmol/L Chloride 97 L (98-107) mmol/L Creatinine 1.30 H (0.66-1.25) mg/dL Glucose 126 H (74-99) mg/dL Procalcitonin 0.13 H (0.02-0.09) ng/mL Microbiology - Last 24 Hours (Table) 07/31/21 13:04 Blood Culture - Preliminary Blood No Growth after 24 hours 07/31/21 13:04 Blood Culture - Preliminary Blood No Growth after 24 hours
--- NOTE | 2021-08-02 15:11 | P.PN ---
Subjective Progress Note Date: 08/02/21 This is a 76 year old male who presents with dyspnea ongoing for the last few months and was sent here in ambulance from [facility]. Chest xray showing pulmonary edema which is increasing, congestive heart failure vs. pulmonary fibrosis. Echocardiogram completed today showing normal ejection fraction with trace tricuspid regurgitation. IV lasix has been discontinued as his creatinine has been increasing, today it is 1.30. He was receiving IV azithromycin and IV ceftriaxone which have been transitioned to oral azithromycin. He complains of cough with green to yellow sputum. Procalcitonin level 0.13 which is not suggestive of pneumonia, more likely COPD exacerbation. Potassium today 3.3 which patient received oral supplement and will repeat potassium this afternoon. Otherwise he is hoping for discharge tomorrow. He remains on room with oxygen saturation of 94%. Review of Systems Constitutional: Denied any fatigue denied any fever. Cardio vascular: denied any chest pain, palpitations Gastrointestinal: denied any nausea, vomiting, diarrhea Pulmonary: Denies shortness of breath, reports productive cough with yellow/green sputum Neurologic denied any new focal deficits All inpatient medications were reviewed and appropriate changes in these medications as dictated in the interval history and assessment and plan. PHYSICAL EXAMINATION: GENERAL: The patient is alert and oriented x3, not in any acute distress. Well developed, well nourished. HEENT: Pupils are round and equally reacting to light. EOMI. No scleral icterus. No conjunctival pallor. Normocephalic, atraumatic. No pharyngeal erythema. No thyromegaly. CARDIOVASCULAR: S1 and S2 present. No murmurs, rubs, or gallops. PULMONARY: Faint bibasilar crackles noted. No wheezing. ABDOMEN: Soft, nontender, nondistended, normoactive bowel sounds. No palpable organomegaly. MUSCULOSKELETAL: No joint swelling or deformity. EXTREMITIES: No cyanosis, clubbing, or pedal edema. NEUROLOGICAL: Gross neurological examination did not reveal any focal deficits. SKIN: No rashes. Assessment and Plan Assessment Shortness of breath multifactorial secondary to acute CHF, acute COPD, and atrial fibrillation with rapid ventricular rate, improving, patient continues on room air. Acute kidney injury from diuresis, lasix has been discontinued Acute mild heart failure, current EF 55 to 60% Paroxysmal atrial fibrillation anticoagulated with xarelto Most likely history of COPD Hypokalemia secondary to diuresis Hypertension Hyperlipidemia Anemia, normocytic, no baseline available History of obstructive sleep apnea with CPAP Degenerative joint disease History of anxiety, depression Nicotine dependence GI Prophylaxis DVT Prophylaxis Do Not Resuscitate Plan Continue oral antibiotics Continues on symbicort, duonebs Lasix has been discontinued Repeat labs in AM Daily weight, intake and output monitoring Pulmonary, Cardiology following Patient is hoping to be discharged tomorrow The impression and plan of care has been dictated by Shari Ortez, Nurse Practitioner as directed. Dr. Marion MD I have performed a history and physical examination and medical decision making of this patient, discussed the same with the dictator, and agree with the dictators assessment and plan as written, documented as a scribe. Based on total visit time, I have performed more than 50% of this visit. Objective - Vital Signs Vital signs: Vital Signs Temp 98.6 F 07/31/21 20:00 Pulse 68 08/02/21 08:04 Resp 16 08/02/21 08:00 BP 107/67 08/02/21 08:00 Pulse Ox 91 L 08/02/21 08:00 FiO2 Intake & Output 08/01/21 08/02/21 08/02/21 18:59 06:59 18:59 Intake Total 1040 970 600 Balance 1040 970 600 Intake: Oral 1040 970 600 Other: Voiding Method Toilet Toilet Urinal Urinal # Voids 4 3 - Labs CBC & Chem 7: 08/01/21 04:42 08/02/21 09:15 Labs: Abnormal Lab Results - Last 24 Hours (Table) 08/01/21 Range/Units 04:42 Procalcitonin 0.13 H (0.02-0.09) ng/mL Microbiology - Last 24 Hours (Table) 07/31/21 13:04 Blood Culture - Preliminary Blood No Growth after 24 hours 07/31/21 13:04 Blood Culture - Preliminary Blood No Growth after 24 hours Assessment and Plan Time with Patient: Less than 30
[2021-08-02] MEDS: RIVAROXABAN 20 MG TAB PO SCH (16:59)
[2021-08-02] MEDS ORDERED: POTASSIUM CHLORIDE ER 20 MEQ TAB.ER PO SCH (18:00)
[2021-08-02] MEDS: PRAZOSIN 1 MG CAP PO SCH (21:15)
--- NOTE | 2021-08-03 07:39 | XR ---
EXAMINATION TYPE: XR chest 1V portable DATE OF EXAM: 08/03/2021 COMPARISON: 08/01/2021 HISTORY: Shortness of breath TECHNIQUE: Single frontal view of the chest is obtained. FINDINGS: Interstitial pattern with cardiomegaly and basilar subsegmental consolidation stable. Post surgical change right shoulder. No pneumothorax. Peripheral based densities in the left upper lobe in filtrates persist. Could not exclude nodularity. IMPRESSION: 1. There appears to be interval improvement in interstitial pattern which may represent improving int erstitial pneumonitis or venous congestion superimposed on a background of chronic interstitial lung disease and COPD. 2. Cardiomegaly. 3. Persistent left upper lobe peripheral infiltrate with nodularity. Consider CT scan.
[2021-08-03] MEDS: AZITHROMYCIN 500 MG TAB PO SCH (08:29)
[2021-08-03] MEDS: lamoTRIgine 25 MG TAB PO SCH (08:29)
[2021-08-03] MEDS: buPROPion XL 300 MG TAB.ER.24H PO SCH (08:29)
[2021-08-03] MEDS: ATORVASTATIN 20 MG TAB PO SCH (08:29)
[2021-08-03] MEDS: lamoTRIgine 100 MG TAB PO SCH (08:29)
[2021-08-03] MEDS: METOPROLOL TARTRATE 12.5 MG TAB PO SCH ×3 (08:29→23:50)
[2021-08-03 08:31] LABS: Calcium 8.9 mg/dL (8.4-10.2); Potassium 4.2 mmol/L (3.5-5.1)
[2021-08-03] MEDS: IPRATROPIUM-ALBUTEROL 3 ML NEB INHALATION SCH ×4 (08:51→21:17)
[2021-08-03] MEDS: SYMBICORT 160-4.5 MCG INHALER INHALATION SCH ×2 (08:51→21:17)
[2021-08-03] MEDS ORDERED: ARTIFICIAL TEARS-HYPROMELLOSE DROPS 15 ML BTL BOTH EYES PRN (11:35)
--- NOTE | 2021-08-03 11:35 | P.PN ---
Subjective Progress Note Date: 08/03/21 76-year-old male, who presented to the emergency department on July 31, which shortness of breath. The patient apparently has a history of COPD from previous heavy tobacco use, and has a history of atrial fibrillation. The patient apparently was driving home from [place], over to [place], and [place], because he was profoundly short of breath. He also complains of cough, nasal congestion drainage, but minimal sputum production. The patient also states that he likely had a temperature elevation and/or chills. The patient denies any wheezing. No chest pain or chest discomfort. Denied any nausea, vomiting, or diarrhea. The patient was seen in the emergency room, and admitted to the hospital for shortness of breath, secondary to CHF, and COPD exacerbation. He is currently resting comfortably. The patient is currently not on any supplemental oxygen. White count 7.1, hemoglobin 11.4, hematocrit 37.1, and platelet count 271,000. Sodium 135, potassium 3.9, chlorides 102, CO2 27, BUN 18, and creatinine 1.28. Troponins were 0.015, 0.017, and 0.016. N-terminal proBNP was 3840. Testing for downs virus was negative. EKG is reviewed. Chest x-ray shows evidence of cardiomegaly, and mild to moderate CHF. On today's evaluation of 08/02/2021, the patient is feeling better and he is less short of breath compared to yesterday. His proBNP level was elevated and his presentation was typical of CHF. Repeat chest x-ray from yesterday shows pulmonary edema with cardiomegaly. The patient's echo of the heart was completed yesterday and the patient was found to have LV function that was normal with an EF around 55-60%, no significant valvular abnormalities noted. No other acute abnormalities noted. His blood pressure today is well controlled. His pulse ox on room air is around 91%. In terms of treatment, he is on bronchodilators, he is on IV Solu-Medrol, he is also on no diuretics for now. He is on Xarelto 20 mg by mouth daily anything Xarelto for issues related to atrial fibrillation. The patient has obstructive sleep apnea and he is ma intained on APAP and he carries a ResMed CPAP unit with him which is set at the pressure minimum of 5 and a maximal 15. His been compliant to CPAP therapy based on a quick compliancy evaluation was done at the bedside. 08/03/2021, the patient is feeling better and his main complaint is cough and. His last bronchus spastic and wheezy compared to yesterday. No chest pain. His echocardiogram at shown a preserved LV function. The patient is on room air oxygen with a pulse ox of 95%. The creatinine is at 1.2 with a BUN of 22. The rest of the electrolytes are all within normal limits. The patient is on DuoNeb nebulized treatments around the clock and Symbicort as maintenance. The patient is also on Xarelto 20 mg by mouth daily. Patient continues to be in atrial fibrillation and his rate is controlled for now. Objective - Vital Signs Vital signs: Vital Signs Temp 97.6 F 08/03/21 04:00 Pulse 96 08/03/21 09:15 Resp 16 08/03/21 08:00 BP 108/70 08/03/21 08:00 Pulse Ox 95 08/03/21 08:00 FiO2 Intake & Output 08/02/21 08/03/21 08/03/21 18:59 06:59 18:59 Intake Total 1800 540 240 Balance 1800 540 240 Weight 125.191 kg 119.5 kg Intake: Oral 1800 540 240 Other: Voiding Method Toilet Urinal Urinal Urinal # Voids 1 - Exam No acute distress, oriented 3. Currently on room air. No obvious distress. HEENT examination is grossly unremarkable. Neck supple. Full range of motion. No adenopathy thyromegaly or neck vein distention. Cardiovascular examination reveals irregular rhythm rate. S1-S2 normal. No S3 or S4. No discernible murmur noted. . Heart sounds are distant. Lungs reveal scattered bilateral rhonchi. Bibasilar crackles. No wheezes. Saturations 94%. Breath sounds equal bilaterally. Abdomen soft bowel sounds are heard. No masses or tenderness. Extremities are intact. No cyanosis clubbing or edema. Skin is without rash or lesion. Neurologic examination is brief but nonfocal. - Labs CBC & Chem 7: 08/01/21 04:42 08/03/21 07:40 Labs: Abnormal Lab Results - Last 24 Hours (Table) 08/03/21 Range/Units 07:40 BUN 22 H (9-20) mg/dL Creatinine 1.29 H (0.66-1.25) mg/dL Glucose 141 H (74-99) mg/dL Microbiology - Last 24 Hours (Table) 07/31/21 13:04 Blood Culture - Preliminary Blood No Growth after 48 hours 07/31/21 13:04 Blood Culture - Preliminary Blood No Growth after 48 hours Assessment and Plan Plan: Acute hypoxic respiratory failure, currently on room air oxygen Atrial fibrillation with rapid ventricular response at a time of admission, current rate is controlled , the patient continues to be in atrial fibrillation. The patient is on Xarelto for long-term anticoagulants. He is on a combination of metoprolol and digoxin for rate control. Acute decompensated CHF with a preserved LV function Acute kidney injury, likely secondary to diuresis, creatinine is up to 1. 29 with her uncomfortableAcute shortness of breath, likely multifactorial, in part related to CHF, possible atrial fibrillation, and COPD exacerbation. Active sleep apnea, currently on CPAP therapy and the patient has a APAP machine 5/15 cm of water Previous history of heavy tobacco use, and probable underlying COPD. History of hypertension. History of hyperlipidemia. History of anxiety/depression. Plan: Clinically improving Chest x-ray from today showing no acute abnormalities. There is still some cardiomegaly and increased interstitial markings bilaterally. Clinically however the patient is better. We will add a cough medication to suppress his cough. Patient will be also placed on a prednisone burst taper. The patient will continue the Symbicort and albuterol and Atrovent about treatments around the clock. Atrial fibrillation is under better control for now and the patient is on long-term and to coagulation with Xarelto. Management of atrial fibrillation. Cardiology Continue CPAP therapy, the patient is an APAP unit We'll continue to follow(
--- NOTE | 2021-08-03 12:07 | P.PN ---
Subjective This is a 76-year-old male who lives in the [place] area. He has a history of paroxysmal atrial fibrillation on Xarelto, possible COPD, history of having depression and suicidal ideation follows with a therapist 2 times per week and has a Tibetan mastiff service dog at his bedside. He follows with a fisher spear in [place] for atrial fibrillation recently started on Xarelto a couple months ago, does not remember his fisher spear name. He does follow with a PCP Dr. Packer He was traveling to [place] through [employer] to see his sister and on his way back through [place], patient was significantly short of breath after he had walked to the [employer] store. He came into [facility] emergency turner for evaluation. He has had shortness of breath for a couple months and worse at this time. He also states he has some trouble with memory issues. He denies chest pain, symptoms of orthopnea or PND. Patient was a smoker of 2 packs per day for 40+ years and quit in 1999. Records were obtained from his PCP office at [facility], patient was diagnosed with atrial fibrillation in 2019 by EKG and was referred to cardiology. Xarelto was initiated. 08/03/2021 Patient seen and examined at bedside, no acute distress. He had increased shortness of breath overnight. Continues to have cough, runny nose and sputum. Denies any chest pain. Echocardiogram revealed EF 5560% trace mitral regurgitation, trace tricuspid regurgitation. Patient was initially started on IV Lasix, decrease weight noted. Telemetry reviewed, patient is in atrial fibrillation with heart rates in the [id number], RVR noted overnight, likely secondary to shortness of breath He is currently maintained on Xarelto 20 mg daily, metoprolol titrate 25 mg twice a day, atorvastatin 20 mg daily, IV Lasix 40 mg twice a day Sodium 136, potassium 3.3, BUN 18, serum creatinine 1.3 GENERAL: Well-appearing, well-nourished and in no acute distress. NECK: Supple without JVD or thyromegaly. LUNGS: Breath sounds clear to auscultation bilaterally. Respiration equal and unlabored. No wheezes, rales or rhonchi. HEART: Regular rate and rhythm without murmurs, rubs or gallops. S1 and S2 heard. EXTREMITIES: Normal range of motion, no edema. No clubbing or cyanosis. Peripheral pulses intact. ASSESSMENT Paroxysmal atrial fibrillation with RVR on Xarelto Acute heart failure with preserved ejection fraction, improved Possible Left upper lobe pneumonia Acute on chronic kidney disease COPD exacerbation Hypertension Hyperlipidemia Obstrutive sleep apnea PLAN Add Digoxin 62.5mcg daily Continue metoprolol 12.5mg TID Hold IV Lasix Monitor BMP Continue cardiac telemetry Further recommendations based on clinical course Nurse Practitioner note has been reviewed, I agree with a documented findings and plan of care. Patient was seen and examined. Objective - Vital Signs Vital signs: Vital Signs Temp 97.6 F 08/03/21 04:00 Pulse 96 08/03/21 09:15 Resp 16 08/03/21 08:00 BP 108/70 08/03/21 08:00 Pulse Ox 95 08/03/21 08:00 FiO2 Intake & Output 08/02/21 08/03/21 08/03/21 18:59 06:59 18:59 Intake Total 1800 540 240 Balance 1800 540 240 Weight 125.191 kg 119.5 kg Intake: Oral 1800 540 240 Other: Voiding Method Toilet Urinal Urinal Urinal # Voids 1 - Labs CBC & Chem 7: 08/01/21 04:42 08/03/21 07:40 Labs: Abnormal Lab Results - Last 24 Hours (Table) 08/03/21 Range/Units 07:40 BUN 22 H (9-20) mg/dL Creatinine 1.29 H (0.66-1.25) mg/dL Glucose 141 H (74-99) mg/dL Microbiology - Last 24 Hours (Table) 07/31/21 13:04 Blood Culture - Preliminary Blood No Growth after 48 hours 07/31/21 13:04 Blood Culture - Preliminary Blood No Growth after 48 hours
[2021-08-03] MEDS: predniSONE 20 MG TAB PO SCH (13:02)
[2021-08-03] MEDS: DIGOXIN 62.5 MCG TAB PO SCH (13:03)
--- NOTE | 2021-08-03 14:11 | P.PN ---
Subjective Progress Note Date: 08/03/21 This is a 76 year old male who presents with dyspnea ongoing for the last few months and was sent here in ambulance from [facility]. Chest xray showing pulmonary edema which is increasing, congestive heart failure vs. pulmonary fibrosis. Echocardiogram completed today showing normal ejection fraction with trace tricuspid regurgitation. IV lasix has been discontinued as his creatinine has been increasing, today it is 1.30. He was receiving IV azithromycin and IV ceftriaxone which have been transitioned to oral azithromycin. He complains of cough with green to yellow sputum. Procalcitonin level 0.13 which is not suggestive of pneumonia, more likely COPD exacerbation. Potassium today 3.3 which patient received oral supplement and will repeat potassium this afternoon. Otherwise he is hoping for discharge tomorrow. He remains on room with oxygen saturation of 94%. 08/03/2021 Patient evaluated today resting in bed. He had a burst of rapid rate yesterday evening which he was also feeling short of breath at that time. He continues in atrial fibrillation, digoxin has been added today by cardiology. Will continue with current medications and monitor patient on telemetry overnight, most likely discharge tomorrow if no further episodes. Increase activity level. Otherwise no wheezing noted today, lungs have increased aeration, he is on room air oxygen saturation 96%, blood pressure 114/71, afebrile. He continues on oral azithromycin, symbicort, duonebs. Prednisone burst and taper has been started today. Creatinine improved today down to 1.2. Review of Systems Constitutional: Denied any fatigue denied any fever. Cardio vascular: denied any chest pain, palpitations Gastrointestinal: denied any nausea, vomiting, diarrhea Pulmonary: Denies shortness of breath, reports productive cough with yellow/green sputum Neurologic denied any new focal deficits All inpatient medications were reviewed and appropriate changes in these medications as dictated in the interval history and assessment and plan. PHYSICAL EXAMINATION: GENERAL: The patient is alert and oriented x3, not in any acute distress. Well developed, well nourished. HEENT: Pupils are round and equally reacting to light. EOMI. No scleral icterus. No conjunctival pallor. Normocephalic, atraumatic. No pharyngeal erythema. No thyromegaly. CARDIOVASCULAR: S1 and S2 present. No murmurs, rubs, or gallops. PULMONARY: Faint bibasilar crackles noted. No wheezing. ABDOMEN: Soft, nontender, nondistended, normoactive bowel sounds. No palpable organomegaly. MUSCULOSKELETAL: No joint swelling or deformity. EXTREMITIES: No cyanosis, clubbing, or pedal edema. NEUROLOGICAL: Gross neurological examination did not reveal any focal deficits. SKIN: No rashes. Assessment and Plan Assessment Shortness of breath multifactorial secondary to acute CHF, acute COPD, and atrial fibrillation with rapid ventricular rate, improving, patient continues on room air. Acute kidney injury from diuresis, creatinine improving Acute mild heart failure, current EF 55 to 60%, improved Paroxysmal atrial fibrillation anticoagulated with xarelto, burst of RVR yesterday evening Most likely history of COPD Hypokalemia secondary to diuresis Hypertension Hyperlipidemia Anemia, normocytic, no baseline available History of obstructive sleep apnea with CPAP Degenerative joint disease History of anxiety, depression Nicotine dependence GI Prophylaxis DVT Prophylaxis Do Not Resuscitate Plan Continue oral antibiotics Continues on symbicort, duonebs Lasix has been discontinued Started on digoxin today Prednisone burst and taper started today Repeat labs in AM Daily weight, intake and output monitoring Pulmonary, Cardiology following Increase activity level if no further acute events overnight on telemetry plan for discharge tomorrow. The impression and plan of care has been dictated by Shari Ortez Nurse Practitioner as directed. Dr. Marion MD I have performed a history and physical examination and medical decision making of this patient, discussed the same with the dictator, and agree with the dictators assessment and plan as written, documented as a scribe. Based on total visit time, I have performed more than 50% of this visit. Objective - Vital Signs Vital signs: Vital Signs Temp 97.6 F 08/03/21 04:00 Pulse 92 08/03/21 12:19 Resp 16 08/03/21 12:00 BP 114/71 08/03/21 12:00 Pulse Ox 96 08/03/21 12:00 FiO2 Intake & Output 08/02/21 08/03/21 08/03/21 18:59 06:59 18:59 Intake Total 1800 540 240 Balance 1800 540 240 Weight 125.191 kg 119.5 kg Intake: Oral 1800 540 240 Other: Voiding Method Toilet Urinal Urinal Urinal # Voids 1 - Labs CBC & Chem 7: 08/01/21 04:42 08/03/21 07:40 Labs: Abnormal Lab Results - Last 24 Hours (Table) 08/03/21 Range/Units 07:40 BUN 22 H (9-20) mg/dL Creatinine 1.29 H (0.66-1.25) mg/dL Glucose 141 H (74-99) mg/dL Microbiology - Last 24 Hours (Table) 07/31/21 13:04 Blood Culture - Preliminary Blood No Growth after 48 hours 07/31/21 13:04 Blood Culture - Preliminary Blood No Growth after 48 hours Assessment and Plan Time with Patient: Less than 30
[2021-08-03 14:17] VITALS: BMI 33.8
[2021-08-03] MEDS ORDERED: guaiFENesin SYRUP 100MG/5ML 200 MG/10 ML CUP PO PRN ×2 (15:27)
[2021-08-03] MEDS ORDERED: BENZOCAINE/MENTHOL LOZENG 1 EACH LOZENGE MUCOUS MEM PRN (15:27)
[2021-08-03] MEDS: RIVAROXABAN 20 MG TAB PO SCH (15:56)
[2021-08-03] MEDS: PRAZOSIN 1 MG CAP PO SCH (19:54)
[2021-08-03 19:59] VITALS: RESP 18
[2021-08-04] MEDS: SYMBICORT 160-4.5 MCG INHALER INHALATION SCH (08:10)
[2021-08-04] MEDS: IPRATROPIUM-ALBUTEROL 3 ML NEB INHALATION SCH ×3 (08:10→15:30)
[2021-08-04 08:22] VITALS: BP 116/76; TEMP 98
[2021-08-04] MEDS: AZITHROMYCIN 500 MG TAB PO SCH (08:22)
[2021-08-04] MEDS: buPROPion XL 300 MG TAB.ER.24H PO SCH (08:22)
[2021-08-04] MEDS: predniSONE 20 MG TAB PO SCH (08:22)
[2021-08-04] MEDS: lamoTRIgine 25 MG TAB PO SCH (08:22)
[2021-08-04] MEDS: DIGOXIN 62.5 MCG TAB PO SCH (08:22)
[2021-08-04] MEDS: METOPROLOL TARTRATE 12.5 MG TAB PO SCH (08:22)
[2021-08-04] MEDS: ATORVASTATIN 20 MG TAB PO SCH (08:23)
[2021-08-04] MEDS: lamoTRIgine 100 MG TAB PO SCH (08:23)
[2021-08-04 08:32] LABS: Calcium 9.2 mg/dL (8.4-10.2)
--- NOTE | 2021-08-04 11:15 | P.PN ---
Subjective Progress Note Date: 08/04/21 76-year-old male, who presented to the emergency department on July 31, which shortness of breath. The patient apparently has a history of COPD from previous heavy tobacco use, and has a history of atrial fibrillation. The patient apparently was driving home from [place], over to [place], and [place], because he was profoundly short of breath. He also complains of cough, nasal congestion drainage, but minimal sputum production. The patient also states that he likely had a temperature elevation and/or chills. The patient denies any wheezing. No chest pain or chest discomfort. Denied any nausea, vomiting, or diarrhea. The patient was seen in the emergency room, and admitted to the hospital for shortness of breath, secondary to CHF, and COPD exacerbation. He is currently resting comfortably. The patient is currently not on any supplemental oxygen. White count 7.1, hemoglobin 11.4, hematocrit 37.1, and platelet count 271,000. Sodium 135, potassium 3.9, chlorides 102, CO2 27, BUN 18, and creatinine 1.28. Troponins were 0.015, 0.017, and 0.016. N-terminal proBNP was 3840. Testing for downs virus was negative. EKG is reviewed. Chest x-ray shows evidence of cardiomegaly, and mild to moderate CHF. On today's evaluation of 08/02/2021, the patient is feeling better and he is less short of breath compared to yesterday. His proBNP level was elevated and his presentation was typical of CHF. Repeat chest x-ray from yesterday shows pulmonary edema with cardiomegaly. The patient's echo of the heart was completed yesterday and the patient was found to have LV function that was normal with an EF around 55-60%, no significant valvular abnormalities noted. No other acute abnormalities noted. His blood pressure today is well controlled. His pulse ox on room air is around 91%. In terms of treatment, he is on bronchodilators, he is on IV Solu-Medrol, he is also on no diuretics for now. He is on Xarelto 20 mg by mouth daily anything Xarelto for issues related to atrial fibrillation. The patient has obstructive sleep apnea and he is ma intained on APAP and he carries a ResMed CPAP unit with him which is set at the pressure minimum of 5 and a maximal 15. His been compliant to CPAP therapy based on a quick compliancy evaluation was done at the bedside. 08/03/2021, the patient is feeling better and his main complaint is cough and. His last bronchus spastic and wheezy compared to yesterday. No chest pain. His echocardiogram at shown a preserved LV function. The patient is on room air oxygen with a pulse ox of 95%. The creatinine is at 1.2 with a BUN of 22. The rest of the electrolytes are all within normal limits. The patient is on DuoNeb nebulized treatments around the clock and Symbicort as maintenance. The patient is also on Xarelto 20 mg by mouth daily. Patient continues to be in atrial fibrillation and his rate is controlled for now. 08/04/2021, the patient is on room air oxygen with a pulse ox of 96%. This persisted improved considerably. No new complaints. He is considering leaving the hospital today. He is hemodynamically stable. Afebrile. Blood work from today is showing a sodium level of 136, potassium of 5, BUN of 24 with a creatinine of 1.2. The patient had an echocardiogram that showed a preserved LV function. He is on Symbicort. He has been treated with DuoNeb nebulized treatments around the clock. Is completing a prednisone burst taper. He is also on Xarelto 20 mg by mouth daily. He had his APAP machine with him regarding his obstructive sleep apnea. No diuretics for now. Objective - Vital Signs Vital signs: Vital Signs Temp 98.0 F 08/04/21 08:00 Pulse 98 08/04/21 08:22 Resp 18 08/04/21 08:00 BP 116/76 08/04/21 08:00 Pulse Ox 96 08/04/21 08:10 FiO2 Intake & Output 08/03/21 08/04/21 08/04/21 18:59 06:59 18:59 Intake Total 240 300 118 Balance 240 300 118 Weight 119.5 kg Intake: Oral 240 300 118 Other: Voiding Method Urinal Urinal # Voids 1 1 - Exam No acute distress, oriented 3. Currently on room air. No obvious distress. HEENT examination is grossly unremarkable. Neck supple. Full range of motion. No adenopathy thyromegaly or neck vein distention. Cardiovascular examination reveals irregular rhythm rate. S1-S2 normal. No S3 or S4. No discernible murmur noted. . Heart sounds are distant. Lungs reveal scattered bilateral rhonchi. Bibasilar crackles. No wheezes. Saturations 94%. Breath sounds equal bilaterally. Abdomen soft bowel sounds are heard. No masses or tenderness. Extremities are intact. No cyanosis clubbing or edema. Skin is without rash or lesion. Neurologic examination is brief but nonfocal. - Labs CBC & Chem 7: 08/01/21 04:42 08/04/21 07:14 Labs: Abnormal Lab Results - Last 24 Hours (Table) 08/04/21 Range/Units 07:14 Sodium 136 L (137-145) mmol/L BUN 24 H (9-20) mg/dL Glucose 124 H (74-99) mg/dL Microbiology - Last 24 Hours (Table) 07/31/21 13:04 Blood Culture - Preliminary Blood No Growth after 72 hours 07/31/21 13:04 Blood Culture - Preliminary Blood No Growth after 72 hours Assessment and Plan Plan: Acute hypoxic respiratory failure, currently on room air oxygen Atrial fibrillation with rapid ventricular response at a time of admission, current rate is controlled , the patient continues to be in atrial fibrillation. The patient is on Xarelto for long-term anticoagulants. He is on a combination of metoprolol and digoxin for rate control. The rate is under much better control for now. No active issues. No signs of any decompensated heart failure. Acute decompensated CHF with a preserved LV function Acute kidney injury, likely secondary to diuresis, creatinine is up to 1. 22 with her uncomfortableAcute shortness of breath, likely multifactorial, in part related to CHF, possible atrial fibrillation, and COPD exacerbation. Active sleep apnea, currently on CPAP therapy and the patient has a APAP machine 5/15 cm of water Previous history of heavy tobacco use, and probable underlying COPD. History of hypertension. History of hyperlipidemia. History of anxiety/depression. Plan: Clinically improving Can be discharged home on Symbicort maintenance, prednisone burst taper and albuterol HFA. The patient is completing also a course of Zithromax. Continue anticoagulation with Xarelto and continue the combination of metoprolol and digoxin for rate control regarding his atrial fibrillation. Continue CPAP therapy, the patient is an APAP unit possible discharge today once cleared by cardiology.
--- NOTE | 2021-08-04 12:47 | P.PN ---
Subjective This is a 76-year-old male who lives in the [place] area. He has a history of paroxysmal atrial fibrillation on Xarelto, possible COPD, history of having depression and suicidal ideation follows with a therapist 2 times per week and has a Tibetan mastiff service dog at his bedside. He follows with a health analytics consultant in [place] for atrial fibrillation recently started on Xarelto a couple months ago, does not remember his health analytics consultant name. He does follow with a PCP Dr. Packer He was traveling to [place] through [place] to see his sister and on his way back through [place], patient was significantly short of breath after he had walked to the [employer] store. He came into [facility] emergency viola for evaluation. He has had shortness of breath for a couple months and worse at this time. He also states he has some trouble with memory issues. He denies chest pain, symptoms of orthopnea or PND. Patient was a smoker of 2 packs per day for 40+ years and quit in 1999. Records were obtained from his PCP office at [facility], patient was diagnosed with atrial fibrillation in 2019 by EKG and was referred to cardiology. Xarelto was initiated. 08/04/2021 Patient seen and examined at bedside, no acute distress. Denies any shortness of breath or chest pain. Continues to have cough, runny nose and sputum. Echocardiogram revealed EF 5560% trace mitral regurgitation, trace tricuspid regurgitation. Patient was initially started on IV Lasix, decrease weight noted. IV Lasix on hold. Telemetry reviewed, patient is in atrial fibrillation with heart rates in the [id number], He is currently maintained on Xarelto 20 mg daily, metoprolol titrate 12.5 mg TID, atorvastatin 20 mg daily, digoxin 62.5mcg added yesterday. Sodium sodium 136, potassium 5.0, BUN 24, serum creatinine 1.2 GENERAL: Well-appearing, and in no acute distress. NECK: Supple without JVD or thyromegaly. LUNGS: Breath sounds diminished to auscultation bilaterally. Respiration equal and unlabored. No wheezes, rales or rhonchi. HEART: Regular rate and rhythm without murmurs, rubs or gallops. S1 and S2 heard. EXTREMITIES: Normal range of motion, no edema. No clubbing or cyanosis. Peripheral pulses intact. ASSESSMENT Paroxysmal atrial fibrillation with RVR on Xarelto Acute heart failure with preserved ejection fraction, improved Possible Left upper lobe pneumonia Acute on chronic kidney disease COPD exacerbation Hypertension Hyperlipidemia Obstrutive sleep apnea PLAN Continue current medication regimen with Digoxin 62.5mcg daily and metoprolol 12.5mg TID Continue anticoagulation with Xarelto Continue cardiac telemetry while inpatient From a cardiology perspective, we will continue current medication regimen. Recommend close follow with his health analytics consultant in [place] and Dr. Packer. Please reach out with any further questions or concerns. Nurse Practitioner note has been reviewed, I agree with a documented findings and plan of care. Patient was seen and examined. Objective - Vital Signs Vital signs: Vital Signs Temp 98.0 F 08/04/21 08:00 Pulse 98 08/04/21 12:35 Resp 18 08/04/21 08:00 BP 116/76 08/04/21 08:00 Pulse Ox 96 08/04/21 08:10 FiO2 Intake & Output 08/03/21 08/04/21 08/04/21 18:59 06:59 18:59 Intake Total 240 300 118 Balance 240 300 118 Weight 119.5 kg Intake: Oral 240 300 118 Other: Voiding Method Urinal Urinal # Voids 1 1 - Labs CBC & Chem 7: 08/01/21 04:42 08/04/21 07:14 Labs: Abnormal Lab Results - Last 24 Hours (Table) 08/04/21 Range/Units 07:14 Sodium 136 L (137-145) mmol/L BUN 24 H (9-20) mg/dL Glucose 124 H (74-99) mg/dL Microbiology - Last 24 Hours (Table) 07/31/21 13:04 Blood Culture - Preliminary Blood No Growth after 72 hours 07/31/21 13:04 Blood Culture - Preliminary Blood No Growth after 72 hours
[2021-08-04 15:44] VITALS: PULSE 81
--- NOTE | 2021-08-04 23:14 | P.DS ---
Providers Date of admission: 07/31/21 14:21 Attending physician: Sina Joshi Consults: 07/31/21 14:21 Consult Physician Routine Consulting Provider: [facility] Consult Reason/Comments: Acute pulmonary edema Do you want consulting provider notified?: Yes 07/31/21 16:48 Consult Physician Routine Consulting Provider: Jerald Chapman Consult Reason/Comments: copd Do you want consulting provider notified?: Yes Primary care physician: Physician Nonstaff Hospital Course: Final Diagnosis Shortness of breath multifactorial secondary to acute CHF, acute COPD, and atrial fibrillation with rapid ventricular rate, improving, patient continues on room air. Acute kidney injury from diuresis, creatinine improving Acute mild heart failure, current EF 55 to 60%, improved Paroxysmal atrial fibrillation anticoagulated with xarelto, burst of RVR yesterday evening COPD exacerbation Hypokalemia from diuresis, patient was mild hyperkalemia 5.0 on admission, and potassium up to 5.0 after stopping lasix. Hypertension Hyperlipidemia Anemia, normocytic, no baseline available History of obstructive sleep apnea with CPAP Degenerative joint disease History of anxiety, depression Nicotine dependence Hyperglycemia, A1C 5.5 Do Not Resuscitate Discharge Disposition Patient is stable for discharge, has been cleared by [facility]. New medications include Digoxgin 62.5 mcg daily and metoprolol 12.5 mg po TID. Patient will continue on xarelto for anticoagulation. He will continue on wixela inhaler, 2 more days of oral azithromycin. He has also been discharge on oral steroid taper. Follow up with african studies professor in [place] and also follow up with Dr. Packer. He is also recommended for low potassium diet until follow up labs as potassium had increased up to 5.0. Recommend follow up CT scan outpatient. Hospital Course This is a 76 year old male who presents with dyspnea ongoing for the last few months and was sent here in ambulance from [facility]. He had been coming back [place] after visiting his sister in [place], and was significantly short of breath after walking [place] [employer]. He has his service dog, a Tibetan Mastiff at the bedside. Past medical history includes paroxysmal atrial fibrillation which was diagnosed in 2019 and is anticoagulated with xarelto, possible COPD, depression and suicidal ideation history. He does follow with a therapist outpatient for this. Patient admitted to the hospital for possible pneumonia, pulmonary edema and was evaluated by cardiology and pulmonary services. Chest xray showing pulmonary edema which is increasing, congestive heart failure vs. pulmonary fibrosis. Echocardiogram completed showing normal ejection fraction with trace tricuspid regurgitation. He was started on IV lasix for mild acute heart failure with preserved ejection fraction. IV lasix has been discontinued as his creatinine has been increasing, which peaked at 1.30. He was receiving IV azithromycin and IV ceftriaxone which have been transitioned to oral azithromycin. He complains of cough with green to yellow sputum. Procalcitonin level 0.13 which is not suggestive of pneumonia, more likely COPD exacerbation. Potassium dropped to 3.3 which patient received oral supplement, potassium has improved to 4.2. Creatinine improved to 1.22. Patient was monitored on telemetry and had bursts of rapid ventricular rate and was started on digoxin daily as well as metoprolol three times a day with improvement of heart rate. Repeat chest xray completed showing interval improvement of interstitial pneumonitis vs. venous congestion with superimposed chronic lung disease and COPD. There is also cardiomegaly and persistent left upper lobe infiltrate with nodularity. Patient can follow up with CT scan outpatient for this. Labs on admission WBC 9.6, hgb 12.6, D-Dimer 0.32, sodium 135, potassium 5.0, CO2 21 glucose 119 Troponin negative x3, proBNP 3840, procalcitonin 0.13 COVID / Influenza A / Influenza B negative 08/04/2021 Patient evaluated today resting in bed. He has increased his activity level and has been up walking in the [place] [address]. He did have an additional episode of RVR and was started on digoxin overnight with no further episodes. His heart rate has been in the 90s. Blood pressure 116/76, 96% on room air, afebrile. He denies chest pain, shortness of breath. No wheezing noted today. His cough is improving as well, still with some sputum production but decreasing. Sputum culture not obtained, blood cultures are negative. He denies fever, chills. Denies nausea, vomiting, diarrhea. Lungs are diminished with some coarse scattered rhonchi, no wheezing, no crackles noted. There is no JVD. S1 S2 auscultated, abdomen is soft and nontender. Focal neurological exam is negative. Labs today include sodium 136, potassium 5.0, BUN 24, creat 1.22, glucose 124. Patient is cleared for discharge with medication recommendations as above. He is counseled on smoking cessation. Please see medication reconciliation for a list of current medications. Thank you for allowing us to participate in the care of this patient. The impression and plan of care has been dictated by Shari Ortez, Nurse Practitioner as directed. Dr. Marion MD I have performed a history and physical examination and medical decision making of this patient, discussed the same with the dictator, and agree with the dictators assessment and plan as written, documented as a scribe. Based on total visit time, I have performed more than 50% of this visit. Plan - Discharge Summary Discharge Rx Participant: No New Discharge Prescriptions: New Benzocaine/Menthol Lozeng [Cepacol lozenge] 1 each MUCOUS MEM Q4HR PRN lozenge PRN Reason: Cough Metoprolol Tartrate [Lopressor] 12.5 mg PO TID #90 tab Digoxin [Lanoxin] 62.5 mcg PO DAILY #30 tablet Artificial Tears-Hypromellose [Artificial Tear Drops] 2 drops BOTH EYES QID PRN ml PRN Reason: Dry Eye(S) guaiFENesin SYRUP 100MG/5ML [Robitussin] 200 mg PO Q6HR PRN ml PRN Reason: Cough Azithromycin [Zithromax] 500 mg PO DAILY 2 Days #2 tab predniSONE 0 mg PO DIRECTED 16 Days #40 tab Continue Fluticasone Propion/Salmeterol [Wixela 250-50 Inhub] 1 puff INHALATION RT-BID lamoTRIgine 200 mg PO DAILY lamoTRIgine [LaMICtal] 50 mg PO DAILY Prazosin HCl 2 mg PO HS Albuterol Sulfate [Ventolin HFA] 2 puff INHALATION RT-Q4H PRN PRN Reason: Shortness Of Breath buPROPion XL [Wellbutrin XL] 300 mg PO DAILY Simvastatin [Zocor] 40 mg PO DAILY Rivaroxaban [Xarelto] 20 mg PO DAILY@1800 Discharge Medication List Albuterol Sulfate [Ventolin HFA] 2 puff INHALATION RT-Q4H PRN 07/31/21 [History] Fluticasone Propion/Salmeterol [Wixela 250-50 Inhub] 1 puff INHALATION RT-BID 07/31/21 [History] Prazosin HCl 2 mg PO HS 07/31/21 [History] Rivaroxaban [Xarelto] 20 mg PO DAILY@1800 07/31/21 [History] Simvastatin [Zocor] 40 mg PO DAILY 07/31/21 [History] buPROPion XL [Wellbutrin XL] 300 mg PO DAILY 07/31/21 [History] lamoTRIgine 200 mg PO DAILY 07/31/21 [History] lamoTRIgine [LaMICtal] 50 mg PO DAILY 07/31/21 [History] Artificial Tears-Hypromellose [Artificial Tear Drops] 2 drops BOTH EYES QID PRN ml 08/04/21 [Rx] Azithromycin [Zithromax] 500 mg PO DAILY 2 Days #2 tab 08/04/21 [Rx] Benzocaine/Menthol Lozeng [Cepacol lozenge] 1 each MUCOUS MEM Q4HR PRN lozenge 08/04/21 [Rx] Digoxin [Lanoxin] 62.5 mcg PO DAILY #30 tablet 08/04/21 [Rx] Metoprolol Tartrate [Lopressor] 12.5 mg PO TID #90 tab 08/04/21 [Rx] guaiFENesin SYRUP 100MG/5ML [Robitussin] 200 mg PO Q6HR PRN ml 08/04/21 [Rx] predniSONE 0 mg PO DIRECTED 16 Days #40 tab 08/04/21 [Rx] Follow up Appointment(s)/Referral(s): None,Stated [REFERRING] - 1-2 days Rich Magana MD [STAFF PHYSICIAN] - 1 Week Ambulatory/Diagnostic Orders: Basic Metabolic Panel [LAB.AMB] Time Frame: 2 Days, Location: None Selected Patient Instructions/Handouts: Metoprolol (By mouth), Digoxin (By mouth), A-fib (Atrial Fibrillation) (ED), Potassium Content of Foods List (DC) Activity/Diet/Wound Care/Special Instructions: Please follow up with your african studies professor in [place] in 1 week and follow up with Dr. Packer Low potassium Diet and Repeat labs in 2-3 days Discharge Disposition: HOME SELF-CARE
== END 2021-08-04 16:39 | disposition home or self-care (01) | DRG 291 ==
LOC: EC 12:48 → 3SCARD 14:21
PROVIDERS: ADMIT Hospitalist; ATTEND Hospitalist
DX: I13.0 Hypertensive heart and chronic kidney disease with heart failure and stage 1 through stage 4 chronic kidney disease, or unspecified chronic kidney disease (principal); J18.9 Pneumonia, unspecified organism; I50.33 Acute on chronic diastolic (congestive) heart failure; J44.0 Chronic obstructive pulmonary disease with (acute) lower respiratory infection; J44.1 Chronic obstructive pulmonary disease with (acute) exacerbation; N17.9 Acute kidney failure, unspecified; Z20.822 Contact with and (suspected) exposure to COVID-19; E78.5 Hyperlipidemia, unspecified; G47.33 Obstructive sleep apnea (adult) (pediatric); Z66 Do not resuscitate; D64.9 Anemia, unspecified; Z96.659 Presence of unspecified artificial knee joint; Z96.643 Presence of artificial hip joint, bilateral; I49.3 Ventricular premature depolarization; M19.90 Unspecified osteoarthritis, unspecified site; Z96.611 Presence of right artificial shoulder joint; I48.0 Paroxysmal atrial fibrillation; E87.5 Hyperkalemia; R73.9 Hyperglycemia, unspecified; N18.9 Chronic kidney disease, unspecified; E87.6 Hypokalemia; T50.2X5A Adverse effect of carbonic-anhydrase inhibitors, benzothiadiazides and other diuretics, initial encounter; Z71.6 Tobacco abuse counseling; Z87.891 Personal history of nicotine dependence; Z98.1 Arthrodesis status; Z79.01 Long term (current) use of anticoagulants; Z79.899 Other long term (current) drug therapy; Z88.2 Allergy status to sulfonamides
CPT/HCPCS: 36415; 71045; 71046; 80048; 80053; 83036; 83605; 83735; 83880; 84132; 84145; 84484; 85025; 85379; 85610; 85730; 87040; 87502; 87635; 93005; 93306; 94640; 94760; 96365; 96367; 96375; 96376; 99285